=== PATIENT | female | born 1940 | race Caucasian/White ===

== ENCOUNTER → 2017-09-20 | Outpatient (CLI) | payer MEDICARE ==
[~2017-09-20] MED LIST: CALC600C3 PO; COQ-50CA2 PO; ESTR0.62 VAGINAL; FEXO15TA PO; FISH500C PO; IBUP200T47 PO; LEVO.1 PO; LORA1TAB12 PO; LOTE20TA PO; MAGN250T11 PO; MIRA3350 PO; MULT-65 PO; OMEP20TA93 PO; PLAQ200T PO; VITA2000 PO; VITA200C3 PO; VITA500C18 PO
[2017-09-20 11:04] LABS: AUTOMATED NEUTROPHIL # 3.7 TH/MM3 (1.8-7.7); BASOPHIL % 0.5 % (0.0-2.0); EOSINOPHIL # 0.3 TH/MM3 (0-0.4); HEMATOCRIT 42.2 % (35.0-46.0); LYMPHOCYTE # 3.6 TH/MM3 (1.0-4.8); MEAN CELL VOLUME 91.9 FL (80.0-100.0); MEAN CORPUSCULAR HEMOGLOBIN 30.5 PG (27.0-34.0); MEAN CORPUSCULAR HGB CONC 33.2 % (32.0-36.0); MEAN PLATELET VOLUME 8.5 FL (7.0-11.0); MONO % 10.9 % (0.0-8.0); MONOCYTE # 0.9 TH/MM3 (0-0.9); NEUT % 43.6 % (16.0-70.0); PLATELET COUNT 235 TH/MM3 (150-450); RED BLOOD COUNT 4.59 MIL/MM3 (4.00-5.30); RED CELL DISTRIBUTION WIDTH 14.5 % (11.6-17.2); WHITE BLOOD COUNT 8.5 TH/MM3 (4.0-11.0)
[2017-09-20 11:20] LABS: ALBUMIN 3.9 GM/DL (3.4-5.0); AST (GOT) 40 U/L (15-37); BICARBONATE 26.4 MEQ/L (21.0-32.0); BLOOD UREA NITROGEN 12 MG/DL (7-18); CALCIUM 8.8 MG/DL (8.5-10.1); CHLORIDE 106 MEQ/L (98-107); GLOMERULAR FILTRATION RATE 70 ML/MIN (>89); GLUCOSE,FASTING 70 MG/DL (74-99); SODIUM (NA) 142 MEQ/L (136-145)
[2017-09-20 11:25] LABS: ALKALINE PHOSPHATASE 105 U/L (45-117); ALT (GPT) 42 U/L (10-53); TOTAL BILIRUBIN ADULT 0.4 MG/DL (0.2-1.0); TOTAL PROTEIN 7.4 GM/DL (6.4-8.2)
--- NOTE | 2017-09-21 08:16 | EKG ---
Date Performed: 09/20/2017 Time Performed: 10:25:53 PTAGE: 77 years EKG: Sinus rhythm NORMAL ECG PREVIOUS TRACING : 09/01/1998 13.40 DOCTOR: Rosy Lindsay Interpretating Date/Time 09/21/2017 08:15:30
== END ==
LOC: CPRE 10:01
PROVIDERS: ATTEND Surgery
DX: Z01.810 Encounter for preprocedural cardiovascular examination (principal); Z01.812 Encounter for preprocedural laboratory examination; K57.90 Diverticulosis of intestine, part unspecified, without perforation or abscess without bleeding; K44.9 Diaphragmatic hernia without obstruction or gangrene
CPT/HCPCS: 36415; 80053; 85025; 93005

== ENCOUNTER 2017-09-27 05:44 | Inpatient (IN) | END 2017-10-02 15:22 | disposition home or self-care (01) | DRG 330 | DX: K56.699 Other intestinal obstruction unspecified as to partial versus complete obstruction (principal); K57.32 Diverticulitis of large intestine without perforation or abscess without bleeding; I10 Essential (primary) hypertension; K42.9 Umbilical hernia without obstruction or gangrene; E03.9 Hypothyroidism, unspecified; K21.9 Gastro-esophageal reflux disease without esophagitis; K44.9 Diaphragmatic hernia without obstruction or gangrene; Z86.73 Personal history of transient ischemic attack (TIA), and cerebral infarction without residual deficits ==